=== PATIENT | male | born 1990 | race Two or more races ===

== ENCOUNTER 2017-04-29 22:55 | Emergency (ER) | payer SELFPAY ==
[~2017-04-29] VITALS: Ht 188 cm; Wt 88.0 kg
[2017-04-29 23:21] VITALS: BP 125/61
[2017-04-30] MEDS ORDERED: BACITRACIN TOP OINT 1 UD PKG TOP ONE (00:45)
[2017-04-30] MEDS ORDERED: LIDOCAINE 1% HCL (LOCAL ANESTH.) INJ 20ML MDV IN ONE (00:45)
[2017-04-30] MEDS ORDERED: POVIDONE IODINE 10 % TOPICAL OINT 30GM TOP ONE (00:45)
== END 2017-04-30 01:57 | disposition home or self-care (01) ==
LOC: ER 23:03
DX: S51.812A Laceration without foreign body of left forearm, initial encounter (principal); W01.0XXA Fall on same level from slipping, tripping and stumbling without subsequent striking against object, initial encounter; Y93.89 Activity, other specified; Y92.89 Other specified places as the place of occurrence of the external cause; Y99.8 Other external cause status
CPT/HCPCS: 12002